=== PATIENT | female | born 1930 | race Caucasian/White ===

== ENCOUNTER 2020-12-22 23:51 | Inpatient (IN) | payer MEDICARE ==
[2020-12-23] MEDS ORDERED: Fentanyl 100 MCG/2 ML VIAL ONE ×2 (00:40→14:23)
[2020-12-23] MEDS ORDERED: Ondansetron PF 4 MG/2 ML Vial ONE ×2 (00:40→14:45)
[2020-12-23 00:55] LABS: #Lymphocytes 1.1 thou/uL (1.20-3.40); #Monocytes 0.8 thou/uL (0.11-0.59); #Neutrophils 11.6 thou/uL (1.40-6.50); %Basophils 0.1 % (0.0-1.0); %Eosinophils 0.3 % (0.0-10.0); %Lymphocytes 7.9 % (21.0-51.0); %Monocytes 6.1 % (0.0-10.0); %Neutrophils 85.6 % (42.0-75.0); Hemoglobin 12.2 g/dL (12.0-16.0); Mean Corpuscular HGB CONC 32.7 g/dL (32.0-36.0); Mean Corpuscular Hemoglobin 29.8 pg (27.0-31.0); Mean Platelet Volume 6.8 fL (7.4-10.4); Platelet Count 188 thou/uL (130-400); RBC Distribution Width 12.1 % (11.5-14.5); Red Blood Cell (RBC) Count 4.09 mill/uL (4.20-5.40); White Blood Cell (WBC) Count 13.5 thou/uL (4.8-10.8)
[2020-12-23 01:26] LABS: ALT (SGPT) 14 U/L (8-55); AST (SGOT) 18 U/L (5-34); Albumin 3.7 g/dL (3.4-4.8); Alkaline Phosphatase 118 U/L (40-110); Anion Gap 14 mmol/L (10-20); BUN (Urea Nitrogen) 14 mg/dL (9.8-20.1); Bilirubin, Total 0.5 mg/dL (0.2-1.2); Calc. Creatinine Clearance 0 mL/min (70-130); Calcium 9.1 mg/dL (7.8-10.44); Carbon Dioxide 25 mmol/L (23-31); Chloride 96 mmol/L (98-107); Globulin 2.6 g/dL (2.4-3.5); Glucose 177 mg/dL (83-110); Lipase 4 U/L (8-78); Potassium 4.1 mmol/L (3.5-5.1); Protein, Total 6.3 g/dL (5.8-8.1); Sodium 131 mmol/L (136-145)
[2020-12-23] MEDS ORDERED: Fentanyl 100 MCG/2 ML VIAL SLOW IVP PRN (05:38)
[2020-12-23] MEDS ORDERED: Ondansetron PF 4 MG/2 ML Vial IVP PRN ×2 (05:45→12:24)
[2020-12-23] MEDS ORDERED: Ondansetron ODT 4 MG TAB SL PRN (05:45)
[2020-12-23] MEDS ORDERED: Piperacillin/Tazobactam 3.375 GM in Sodium Chloride 0.9% 100 ML IVPB SCH ×3 (06:00→18:00)
[2020-12-23 06:05] VITALS: BMI 25.5
[2020-12-23] MEDS: Sodium Chloride 0.9% 1,000 ML IV SCH ×2 (06:30→11:16)
[2020-12-23 08:15] LABS: SARS-CoV-2 NAA Rapid Test Not Detected (NotDetected)
[2020-12-23] MEDS ORDERED: Ondansetron ORAL SOLN. 4 MG/5 ML UDCUP PO PRN (12:24)
[2020-12-23] MEDS ORDERED: Ondansetron ODT 8 MG TAB SL PRN (12:24)
[2020-12-23] MEDS ORDERED: Ondansetron ODT 8 MG TAB PO PRN (12:24)
[2020-12-23] MEDS ORDERED: Ondansetron ODT 4 MG TAB PO PRN (12:24)
[2020-12-23] MEDS ORDERED: Acetaminophen 500 MG TAB PO PRN (12:24)
[2020-12-23] MEDS ORDERED: Polyvinyl Alcohol 1.4%/Povidone 0.6% Opth Drops EA EYE PRN (12:27)
[2020-12-23] MEDS ORDERED: Sodium Chloride 0.9% 1,000 ML IV SCH (12:28)
[2020-12-23] MEDS ORDERED: Ketorolac Tromethamine 30 MG/ML VIAL IVP SCH (12:30)
[2020-12-23] MEDS ORDERED: Acetaminophen 500 MG TAB PO SCH (12:30)
[2020-12-23] MEDS ORDERED: Sotalol HCl 80 MG TAB PO SCH (13:00)
[2020-12-23] MEDS ORDERED: Lidocaine 1% w/Epinephrine 1:100K 20 ML VIAL ONE (14:18)
[2020-12-23] MEDS ORDERED: Bupivacaine PF 0.5% 30 ML VIAL ONE (14:18)
[2020-12-23] MEDS ORDERED: SUGAMMADEX SODIUM 200 MG/2 ML VIAL ONE (14:23)
[2020-12-23] MEDS ORDERED: Phenylephrine 10 MG/ML VIAL ONE (14:31)
[2020-12-23] MEDS ORDERED: Rocuronium Bromide 10 MG/ML (10ML VIAL) ONE (14:45)
[2020-12-23] MEDS ORDERED: Dexamethasone 20 MG/5 ML VIAL ONE (14:45)
[2020-12-23] MEDS ORDERED: Lidocaine 1% PF 5 ML VIAL ONE (14:45)
[2020-12-23] MEDS ORDERED: PROPOFOL 200 MG/20 ML VIAL ONE (14:45)
[2020-12-23] MEDS ORDERED: Ibuprofen 200 MG TAB PO PRN (14:58)
[2020-12-23] MEDS ORDERED: Promethazine HCl 25 MG/ML VIAL IM PRN (15:07)
[2020-12-23] MEDS ORDERED: Promethazine HCl 25 MG/ML VIAL IVPB PRN (15:07)
[2020-12-23] MEDS ORDERED: PACU-Morphine 4MG/ML VIAL SLOW IVP PRN (15:07)
[2020-12-23] MEDS: traMADol HCl 50 MG TAB PO PRN (18:15)
[2020-12-23] MEDS: Ketorolac Tromethamine 30 MG/ML VIAL IVP PRN (19:06)
[2020-12-23] MEDS: Atorvastatin Calcium 10 MG TAB PO SCH (21:23)
[2020-12-23] MEDS: Azelastine 137 MCG/Spray 30 ML NS SCH (21:23)
[2020-12-23] MEDS: FlunisoLIDE 0.025% Nasal Spray 25 ml Bottle EA NARE SCH (21:23)
[2020-12-23] MEDS: Lactinex Tablet PO SCH (21:23)
[2020-12-24] MEDS: Levothyroxine Sodium 50 MCG TAB PO SCH (06:20)
[2020-12-24] MEDS: Ketorolac Tromethamine 30 MG/ML VIAL IVP PRN ×3 (06:20→19:30)
[2020-12-24 06:35] LABS: Mean Corpuscular HGB CONC 34.1 g/dL (32.0-36.0); Mean Corpuscular Hemoglobin 31.1 pg (27.0-31.0); Mean Corpuscular Volume 91.3 fL (78.0-98.0); Mean Platelet Volume 7.2 fL (7.4-10.4); Platelet Count 156 thou/uL (130-400); RBC Distribution Width 12.3 % (11.5-14.5); Red Blood Cell (RBC) Count 3.53 mill/uL (4.20-5.40); White Blood Cell (WBC) Count 17.4 thou/uL (4.8-10.8)
[2020-12-24 06:42] LABS: ALT (SGPT) 40 U/L (8-55); AST (SGOT) 56 U/L (5-34); Albumin 3.3 g/dL (3.4-4.8); Alkaline Phosphatase 92 U/L (40-110); Anion Gap 15 mmol/L (10-20); BUN (Urea Nitrogen) 14 mg/dL (9.8-20.1); Bilirubin, Total 0.7 mg/dL (0.2-1.2); Calc. Creatinine Clearance 70 mL/min (70-130); Calcium 8.3 mg/dL (7.8-10.44); Carbon Dioxide 20 mmol/L (23-31); Chloride 101 mmol/L (98-107); Globulin 2.2 g/dL (2.4-3.5); Glucose 137 mg/dL (83-110); Potassium 4.1 mmol/L (3.5-5.1); Protein, Total 5.5 g/dL (5.8-8.1); Sodium 132 mmol/L (136-145)
[2020-12-24 06:54] LABS: MDiff Complete? YES
[2020-12-24 06:55] LABS: Lymphocytes 1 % (21-51); Metamyelocyte 2 % (0-0); Neutrophil 97 % (42-75); Platelet Morphology Comment Appears Adequate
[2020-12-24] MEDS: Lactinex Tablet PO SCH ×2 (09:00→20:44)
[2020-12-24] MEDS: Cholecalciferol 1,000 UNITS (25 MCG) TAB PO SCH (09:00)
[2020-12-24] MEDS: Stress 600 With Zinc 1 TAB PO SCH (09:00)
[2020-12-24] MEDS: Loratadine 10 MG TAB PO SCH (09:08)
[2020-12-24] MEDS: FlunisoLIDE 0.025% Nasal Spray 25 ml Bottle EA NARE SCH ×2 (10:32→20:45)
[2020-12-24] MEDS: Azelastine 137 MCG/Spray 30 ML NS SCH ×2 (10:34→20:46)
[2020-12-24] MEDS: Sotalol HCl 80 MG TAB PO SCH (13:05)
[2020-12-24] MEDS: Atorvastatin Calcium 10 MG TAB PO SCH (20:44)
[2020-12-25] MEDS ORDERED: Calcium Carbonate 500 MG ChewTAB PO PRN (01:00)
[2020-12-25] MEDS: Levothyroxine Sodium 50 MCG TAB PO SCH (05:59)
[2020-12-25 06:58] LABS: #Eosinphils 0.1 thou/uL (0.0-0.7); #Lymphocytes 1.5 thou/uL (1.20-3.40); #Monocytes 1.2 thou/uL (0.11-0.59); #Neutrophils 12.8 thou/uL (1.40-6.50); %Basophils 0.2 % (0.0-1.0); %Eosinophils 0.5 % (0.0-10.0); %Lymphocytes 9.8 % (21.0-51.0); %Monocytes 7.9 % (0.0-10.0); %Neutrophils 81.7 % (42.0-75.0); Hemoglobin 10.8 g/dL (12.0-16.0); Mean Corpuscular HGB CONC 32.4 g/dL (32.0-36.0); Mean Corpuscular Hemoglobin 29.9 pg (27.0-31.0); Mean Corpuscular Volume 92.5 fL (78.0-98.0); Mean Platelet Volume 7.4 fL (7.4-10.4); Platelet Count 149 thou/uL (130-400); RBC Distribution Width 12.3 % (11.5-14.5); White Blood Cell (WBC) Count 15.7 thou/uL (4.8-10.8)
[2020-12-25] MEDS: Cholecalciferol 1,000 UNITS (25 MCG) TAB PO SCH (08:36)
[2020-12-25] MEDS: Sotalol HCl 80 MG TAB PO SCH (08:37)
[2020-12-25] MEDS: Loratadine 10 MG TAB PO SCH (08:38)
[2020-12-25] MEDS: Stress 600 With Zinc 1 TAB PO SCH (08:38)
[2020-12-25] MEDS: FlunisoLIDE 0.025% Nasal Spray 25 ml Bottle EA NARE SCH (08:38)
[2020-12-25] MEDS: Azelastine 137 MCG/Spray 30 ML NS SCH (08:39)
[2020-12-25] MEDS: Ketorolac Tromethamine 30 MG/ML VIAL IVP PRN (08:43)
[2020-12-25 08:48] VITALS: TEMP 98
[2020-12-25] MEDS: Lactinex Tablet PO SCH (10:58)
[2020-12-25 11:05] VITALS: BP 126/80
[2020-12-25] MEDS: traMADol HCl 50 MG TAB PO PRN (16:39)
== END 2020-12-25 18:12 | disposition home or self-care (01) | DRG 418 ==
LOC: ERS 23:51 → T4-A 12-23 02:47 → OBSVTOIN 12-25 14:56 → T4-A 12-25 18:04
PROVIDERS: ADMIT Specialist; ATTEND Specialist
PROC: 0FT44ZZ Resection of Gallbladder, Percutaneous Endoscopic Approach (ICD-10-PCS; principal; 2020-12-23)
DX: K80.00 Calculus of gallbladder with acute cholecystitis without obstruction (principal); K56.7 Ileus, unspecified; K91.89 Other postprocedural complications and disorders of digestive system; E87.1 Hypo-osmolality and hyponatremia; E03.9 Hypothyroidism, unspecified; E78.5 Hyperlipidemia, unspecified; I10 Essential (primary) hypertension; Z20.822 Contact with and (suspected) exposure to COVID-19; Z96.651 Presence of right artificial knee joint; I95.9 Hypotension, unspecified; R00.0 Tachycardia, unspecified; Y83.8 Other surgical procedures as the cause of abnormal reaction of the patient, or of later complication, without mention of misadventure at the time of the procedure; Z88.1 Allergy status to other antibiotic agents; Z79.899 Other long term (current) drug therapy; Z90.710 Acquired absence of both cervix and uterus; Z90.49 Acquired absence of other specified parts of digestive tract; Z95.2 Presence of prosthetic heart valve; Z98.890 Other specified postprocedural states; Z86.79 Personal history of other diseases of the circulatory system; Z98.49 Cataract extraction status, unspecified eye
CPT/HCPCS: 36415; 71045; 76705; 80053; 83690; 84484; 85025; 88304; 93005; 96374; 96375; 96376; G0378; J1100; J1885; J2370; J2405; J2543; J2704; J3010; J3490; Q0162; S0020; U0002; U0005